=== PATIENT | male | born 1950 | race Caucasian/White ===

== ENCOUNTER 2017-04-21 18:38 | Inpatient (IN) | payer MEDICARE, BC ==
[~2017-04-21] VITALS: Ht 17.8 cm; Wt 91.8 kg
[~2017-04-21 18:38] MED LIST changes: -ALDACTONE 25MG25 M1 PO; -ASPIRIN 81M81 MG/TA2 PO; -NITROSTAT0.4 MG/TAB SL; -PLAVIX 75MG TAB75 MG PO; -PRINIVIL10 MG PO; -TOPROL XL 25MG25 MG PO
[2017-04-21 19:52] LABS: BASO # 0.1 (0.0-0.2); BASO % 0.7 % (0.0-2.0); EOS # 0.4 (0.0-0.7); EOS % 4.3 % (0-4.0); GRAN % 61.9 % (42.2-75.2); HEMATOCRIT 37.6 % (42.0-52.0); LYMPH # 2.5 (1.2-3.4); LYMPH % 25.9 % (20.0-51.0); MEAN CELL VOLUME 79 fl (80.0-100.0); MEAN CORPUSCULAR HEMOGLOBIN 25 pg (27.0-31.0); MEAN CORPUSCULAR HGB CONC 32 g/dl (33.0-37.0); MEAN PLATELET VOLUME 10.6 fl (7.4-10.4); MONO # 0.7 (0.1-0.6); PLATELET COUNT 223 K/mm3 (130-400); RED BLOOD COUNT 4.79 M/mm3 (4.20-5.60); REDCELL DISTRIBUTION WIDTH-CV 14.6 % (11.5-14.5); WHITE BLOOD COUNT 9.7 K/mm3 (4.8-10.8)
[2017-04-21 19:53] LABS: INR 1.1 (0.8-3.0); PROTHROMBIN TIME 11.8 SECONDS (9.7-12.8)
[2017-04-21 20:00] VITALS: BP 140/80; PULSE 69; TEMP 97.2
[2017-04-21 20:00] LABS: ADJUSTED CALCIUM 9.1 mg/dL (8.4-10.2); ALBUMIN 4.1 gm/dL (3.5-5.0); BILIRUBIN,TOTAL 0.7 mg/dL (0.0-1.0); CALCIUM 9.2 mg/dL (8.4-10.2); CREATININE, serum 1.07 mg/dL (0.66-1.25); POTASSIUM 4.2 mmol/L (3.4-5.0)
[2017-04-21 20:13] LABS: TROPONIN-I 1.12 ng/mL (0.000-0.034)
[2017-04-21] MEDS ORDERED: PRINIVIL10 MG PO (20:33)
[2017-04-21] MEDS ORDERED: ALDACTONE 25MG25 M1 PO (20:34)
[2017-04-22] VITALS (21 sets, daily range): BP systolic 116–151; BP diastolic 64–92; PULSE 43–69; TEMP 96.3–98.1
[2017-04-22 06:05] LABS: BASO # 0.1 (0.0-0.2); BASO % 0.8 % (0.0-2.0); EOS # 0.4 (0.0-0.7); EOS % 5.3 % (0-4.0); GRAN % 53.5 % (42.2-75.2); LYMPH # 2.3 (1.2-3.4); LYMPH % 31.2 % (20.0-51.0); MEAN CELL VOLUME 80 fl (80.0-100.0); MEAN CORPUSCULAR HEMOGLOBIN 25 pg (27.0-31.0); MEAN CORPUSCULAR HGB CONC 32 g/dl (33.0-37.0); MEAN PLATELET VOLUME 11.7 fl (7.4-10.4); MONO # 0.7 (0.1-0.6); MONO % 8.9 % (1.7-9.3); PLATELET COUNT 191 K/mm3 (130-400); RED BLOOD COUNT 4.65 M/mm3 (4.20-5.60); REDCELL DISTRIBUTION WIDTH-CV 14.7 % (11.5-14.5); WHITE BLOOD COUNT 7.5 K/mm3 (4.8-10.8)
[2017-04-22 06:10] LABS: INR 1.1 (0.8-3.0); PROTHROMBIN TIME 12.3 SECONDS (9.7-12.8)
[2017-04-22 06:11] LABS: HEMOGLOBIN 11.7 g/dl (13.5-18.0)
[2017-04-22 06:13] LABS: PARTIAL THROMBOPLASTIN TIME 31.6 SECONDS (26.0-37.0)
[2017-04-22 06:21] LABS: ADJUSTED CALCIUM 9.3 mg/dL (8.4-10.2); ALBUMIN 3.7 gm/dL (3.5-5.0); CALCIUM 9.1 mg/dL (8.4-10.2); CREATININE, serum 0.88 mg/dL (0.66-1.25); MAGNESIUM 2.1 mg/dL (1.6-2.3); POTASSIUM 4.1 mmol/L (3.4-5.0); TOTAL PROTEIN 6.4 gm/dL (6.4-8.2)
[2017-04-22 06:31] LABS: TROPONIN-I 1.12 ng/mL (0.000-0.034)
[2017-04-22 08:09] LABS: PH 7 (5-8); SQUAMOUS EPITHELIAL None Seen /hpf; URINE APPEARANCE Clear; URINE BACTERIA None Seen /hpf; URINE BILIRUBIN Negative (NEGATIVE); URINE BLOOD Negative (NEGATIVE); URINE COLOR Yellow; URINE GLUCOSE Negative (NEGATIVE); URINE KETONE Negative (NEGATIVE); URINE RBC 0-2 /hpf; URINE UROBILINOGEN Negative (NEGATIVE); URINE WBC 0-2 /hpf
[2017-04-23] VITALS: BP 130/84; PULSE 53; TEMP 97.3
[2017-04-23 04:00] VITALS: BP 115/74; PULSE 57; TEMP 97.6
[2017-04-23 06:08] LABS: BASO % 0.5 % (0.0-2.0); EOS # 0.3 (0.0-0.7); EOS % 3.7 % (0-4.0); GRAN # 4.9 (1.4-6.5); GRAN % 61.1 % (42.2-75.2); HEMATOCRIT 37.3 % (42.0-52.0); LYMPH # 1.9 (1.2-3.4); LYMPH % 23.9 % (20.0-51.0); MEAN CELL VOLUME 80 fl (80.0-100.0); MEAN CORPUSCULAR HEMOGLOBIN 25 pg (27.0-31.0); MEAN CORPUSCULAR HGB CONC 31 g/dl (33.0-37.0); MEAN PLATELET VOLUME 10.8 fl (7.4-10.4); MONO # 0.8 (0.1-0.6); MONO % 10.5 % (1.7-9.3); PLATELET COUNT 203 K/mm3 (130-400); RED BLOOD COUNT 4.65 M/mm3 (4.20-5.60); REDCELL DISTRIBUTION WIDTH-CV 14.8 % (11.5-14.5); WHITE BLOOD COUNT 7.9 K/mm3 (4.8-10.8)
[2017-04-23 06:10] LABS: HEMOGLOBIN 11.7 g/dl (13.5-18.0)
[2017-04-23 06:21] LABS: CALCIUM 9.1 mg/dL (8.4-10.2); CREATININE, serum 0.92 mg/dL (0.66-1.25); POTASSIUM 4.4 mmol/L (3.4-5.0)
[2017-04-23 08:00] VITALS: BP 124/73; PULSE 69; TEMP 97.4
[2017-04-23] MEDS ORDERED: ASPIRIN 81M81 MG/TA2 PO (09:14)
[2017-04-23] MEDS ORDERED: TOPROL XL 25MG25 MG PO (11:01)
[2017-04-23] MEDS ORDERED: NITROSTAT0.4 MG/TAB SL (11:40)
[2017-04-23] MEDS ORDERED: PLAVIX 75MG TAB75 MG PO (11:40)
[2017-04-23 12:00] VITALS: BP 118/73; PULSE 93
== END 2017-04-23 12:55 | disposition home or self-care (01) | DRG 247 ==
LOC: ICU 18:38
PROVIDERS: Internal Medicine; Internal Medicine Cardiovascular Disease; Nurse Practitioner Family
PROC: 4A023N7 Measurement of Cardiac Sampling and Pressure, Left Heart, Percutaneous Approach (ICD-10-PCS; principal; 2017-04-22)
PROC: B2111ZZ Fluoroscopy of Multiple Coronary Arteries using Low Osmolar Contrast (ICD-10-PCS; 2017-04-22)
PROC: B2151ZZ Fluoroscopy of Left Heart using Low Osmolar Contrast (ICD-10-PCS; 2017-04-22)
PROC: 027034Z Dilation of Coronary Artery, One Artery with Drug-eluting Intraluminal Device, Percutaneous Approach (ICD-10-PCS; 2017-04-22)
DX: I21.4 Non-ST elevation (NSTEMI) myocardial infarction (principal); I10 Essential (primary) hypertension
CPT/HCPCS: 99223-AI; 99239; C1725; C1760; C1769; C1874; C1887; C1894; C9600; G0378; G0379; J0583; J1650; J2250; J3010; J7030; Q9967

== ENCOUNTER → 2017-04-21 | Outpatient (CLI) | payer MEDICARE, BC ==
[2017-04-21] VITALS (176 sets, daily range): O2SAT 96–100
[~2017-04-21] MED LIST: ALDACTONE 25MG25 M1 PO; ASPIRIN 81M81 MG/TA2 PO; LIPITOR 80MG80 MG PO; NITROSTAT0.4 MG/TAB SL; PLAVIX 75MG TAB75 MG PO; PRINIVIL10 MG PO; TOPROL XL 25MG25 MG PO; TOPROL XL25 MG PO
[2017-04-21 17:34] LABS: BASO # 0.1 (0.0-0.2); BASO % 0.6 % (0.0-2.0); EOS # 0.5 (0.0-0.7); EOS % 4.8 % (0-4.0); GRAN # 5.9 (1.4-6.5); GRAN % 59.2 % (42.2-75.2); HEMATOCRIT 38.7 % (42.0-52.0); HEMOGLOBIN 12.2 g/dl (13.5-18.0); LYMPH # 2.6 (1.2-3.4); LYMPH % 26.4 % (20.0-51.0); MEAN CELL VOLUME 80 fl (80.0-100.0); MEAN CORPUSCULAR HEMOGLOBIN 25 pg (27.0-31.0); MEAN CORPUSCULAR HGB CONC 32 g/dl (33.0-37.0); MEAN PLATELET VOLUME 10.5 fl (7.4-10.4); MONO # 0.9 (0.1-0.6); MONO % 8.8 % (1.7-9.3); PLATELET COUNT 220 K/mm3 (130-400); RED BLOOD COUNT 4.87 M/mm3 (4.20-5.60); REDCELL DISTRIBUTION WIDTH-CV 14.7 % (11.5-14.5)
[2017-04-21 17:46] LABS: ADJUSTED CALCIUM 9.1 mg/dL (8.4-10.2); ALBUMIN 4.2 gm/dL (3.5-5.0); BILIRUBIN,TOTAL 0.7 mg/dL (0.0-1.0); CALCIUM 9.3 mg/dL (8.4-10.2); CREATININE, serum 0.91 mg/dL (0.66-1.25); POTASSIUM 4.5 mmol/L (3.4-5.0); TOTAL PROTEIN 7.1 gm/dL (6.4-8.2)
[2017-04-21 18:08] LABS: TROPONIN-I 1.26 ng/mL (0.000-0.034)
[2017-04-22] VITALS (870 sets, daily range): O2SAT 79–100
[2017-04-23] VITALS (748 sets, daily range): O2SAT 89–100
== END ==
LOC: COL.LAB 17:16
PROVIDERS: Internal Medicine
DX: I20.0 Unstable angina (principal)

== ENCOUNTER 2017-08-10 12:51 | Outpatient (RCR) | payer MEDICARE, BC ==
[~2017-08-10 12:51] MED LIST changes: +ALDACTONE 25MG25 M1 PO; +ASPIRIN 81M81 MG/TA2 PO; +NITROSTAT0.4 MG/TAB SL; +PLAVIX 75MG TAB75 MG PO; +PRINIVIL10 MG PO; +TOPROL XL 25MG25 MG PO
== END 2017-08-11 | disposition home or self-care (01) ==
LOC: COL.CR
DX: Z48.812 Encounter for surgical aftercare following surgery on the circulatory system (principal); Z95.5 Presence of coronary angioplasty implant and graft; I25.10 Atherosclerotic heart disease of native coronary artery without angina pectoris

== ENCOUNTER 2017-08-19 12:00 | Outpatient (RCR) | payer MEDICARE, BC | END 2017-08-28 11:55 | disposition home or self-care (01) | LOC: COL.CR 12:00 | DX: Z48.812 Encounter for surgical aftercare following surgery on the circulatory system (principal); Z95.5 Presence of coronary angioplasty implant and graft; I25.10 Atherosclerotic heart disease of native coronary artery without angina pectoris ==

== ENCOUNTER → 2021-10-10 | Outpatient (CLI) | payer MEDICARE | LOC: COL.VAS 14:11 | DX: I65.23 Occlusion and stenosis of bilateral carotid arteries (principal); G45.3 Amaurosis fugax ==